=== PATIENT | female | born 1935 | race Caucasian/White ===

== ENCOUNTER → 2016-06-17 | Outpatient (CLI) | payer OTHER, BC ==
--- NOTE | 2016-06-17 22:58 | DI ---
THORACOLUMBAR SPINE SERIES, 06/17/2016 12:11 PM: Clinical History: Thoracolumbar back pain. Previous Exam: None at this facility. Upright AP and lateral views of the lower thoracic spine from T6 through the entire lumbar spine are submitted. There is anterior wedging of T8 consistent with a chronic osteoporotic compression fractur e. The remaining thoracic and lumbar vertebral bodies are of normal height. Chronic disc space narrow ing is present from T7-8 through L5-S1. There is a grade 1 spondylolisthesis at L3-4. Degenerative ar thritic changes are present in the thoracic apophyseal joints from T6-7 through T11-12 and in the lum bar spine from L3-4 through L5-S1. Mild levoscoliosis is present in the upper lumbar spine. There are moderate degenerative changes of the sacroiliac joints. This patient has a dual-chamber pacemaker an d the atrial lead may actually be in the right ventricle. Readin. Chronic osteoporotic mild compression fracture is present at T8 and this has a chronic appearance . 2. Diffuse disc space narrowing is visualized from T7-8 through L5-S1 and there is a grade 1 spondyl olisthesis at L3-4. 3. Arthritic changes are present in both sacroiliac joints. 4. The patient has a dual-chamber pacemaker. The right ventricular lead is in the appropriate positi on. The atrial lead may actually be in the right ventricle. If verification is required, then a two-v iew chest x-ray would be recommended.
== END ==
LOC: LAB 12:46
PROVIDERS: ATTEND Internal Medicine
DX: M54.5 Low back pain (principal); M54.6 Pain in thoracic spine; M43.16 Spondylolisthesis, lumbar region; M48.05 Spinal stenosis, thoracolumbar region; M48.54XA Collapsed vertebra, not elsewhere classified, thoracic region, initial encounter for fracture
CPT/HCPCS: 72080

== ENCOUNTER → 2016-07-17 | Outpatient (CLI) | payer OTHER, BC ==
--- NOTE | 2016-07-17 13:01 | DI ---
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 Previous Exam: June 17, 2016 Findings: Lateral flexion and extension views of the lumbar spine are obtained, and demonstrate mild grade 1 an terolisthesis of L3 on L4. Peripheral vascular calcifications are noted. A nonobstructive bowel gas pattern is seen. Postsurgical clips are seen consistent with prior cholecy stectomy. There is mild loss of intervertebral disc height at multiple levels with some vacuum disc p henomenon. Impression: Degenerative disc disease without evidence of instability on flexion or extension.
--- NOTE | 2016-07-17 13:01 | DI ---
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 Previous Exam: June 17, 2016 Findings: 2 lateral views of the thoracic spine are obtained, and demonstrate some mild anterior wedging withou t evidence of compression fracture. There is loss of intervertebral disc height throughout most consi stent with degenerative disc disease. There is a pacemaker which is stable. The lungs appear clear. The cervical spine demonstrates grade 1 anterolisthesis of C3 on C4 and C4 on C5. The prevertebral soft tissues are unremarkable. Impression: Mild diffuse osteopenia and diffuse degenerative disc disease otherwise unremarkable.
--- NOTE | 2016-07-17 13:01 | DI ---
XR FINGERS MIN 2VW,07/17/2016 11:50 AM: Clinical History: Injury of the right index finger. Previous Exam: None at this facility. Findings: 2 views of the right index finger are obtained, and demonstrate extensive degenerative changes of the right distal interphalangeal joint with bony erosion and osteophyte formation. There is also a fragm ent seen on the anterior view involving the lateral surface of the right second distal interphalangea l joint. There are some soft tissue swelling. There are also advanced degenerative changes involving the right first carpometacarpal joint consiste nt with osteoarthritis. There is subchondral cyst formation in the proximal right first metacarpal. Impression: 1. Avulsed fragment within the soft tissues of the right second distal interphalangeal joint with ero sive osteoarthritis of the same joint. It is difficult to tell whether the. There is an acute injury or secondary to the rest of arthritis. Correlate clinically.
== END ==
LOC: MOB RAD 11:55
PROVIDERS: ATTEND Physician Assistant
DX: M47.26 Other spondylosis with radiculopathy, lumbar region (principal); M47.814 Spondylosis without myelopathy or radiculopathy, thoracic region; S69.91XA Unspecified injury of right wrist, hand and finger(s), initial encounter; M19.041 Primary osteoarthritis, right hand
CPT/HCPCS: 72070; 72110; 73140

== ENCOUNTER → 2016-08-14 | Outpatient (CLI) | payer OTHER, BC ==
[2016-08-14 09:34] LABS: BASOPHILS # (AUTO) 0.09 10*3/UL; EOSINOPHILS # (AUTO) 0.08 10*3/UL; EOSINOPHILS % (AUTO) 1.8 % (0-8); HEMATOCRIT 31.3 % (37.0-47.0); HEMOGLOBIN 9.4 g/dL (12.0-16.0); LYMPHOCYTES # (AUTO) 1.65 10*3/uL; MEAN CORPUSCULAR HEMOGLOBIN 27.3 PG (27-31); MEAN PLATELET VOLUME 9.5 FL (7.4-12.2); MONOCYTES # (AUTO) 0.49 10*3/UL (0.3-0.8); MONOCYTES % (AUTO) 10.9 % (5-15); NEUTROPHILS # (AUTO) 2.19 10*3/UL; NEUTROPHILS % (AUTO) 48.5 % (50-80); RED BLOOD COUNT 3.44 10^6/uL (4.20-5.40)
[2016-08-14 09:38] LABS: PLATELET MORPHOLOGY COMMENT NORMAL MORPHOLOGY (NORM); RBC MORPHOLOGY COMMENT NORMAL MORPHOLOGY (NORM); WBC MORPHOLOGY COMMENT NORMAL MORPHOLOGY (NORM)
[2016-08-14 09:48] LABS: BLOOD UREA NITROGEN 28 mg/dL (7-22); CALCIUM 9.7 mg/dL (8.7-10.7); CHOL/HDL RATIO 3.71 RATIO (0-4.0); HDL CHOLESTEROL 49 mg/dL (40-150); SERUM ALBUMIN 4.2 g/dL (3.5-4.8); SERUM CHOLESTEROL 182 mg/dL (120-200)
[2016-08-14 09:55] LABS: CREATININE, URINE 23.9 MG/DL (15-500)
[2016-08-14 10:09] LABS: HEMOGLOBIN A1C 5.75 % (4.2-6.0)
== END ==
LOC: LAB 09:12
PROVIDERS: ATTEND Internal Medicine
DX: E11.9 Type 2 diabetes mellitus without complications (principal); E78.5 Hyperlipidemia, unspecified; D64.9 Anemia, unspecified; I10 Essential (primary) hypertension
CPT/HCPCS: 36415; 80053; 80061; 82043; 82550; 83036; 85025

== ENCOUNTER → 2016-09-17 | Outpatient (CLI) | payer OTHER, BC ==
[2016-09-17 12:24] LABS: BASOPHILS # (AUTO) 0.09 10*3/UL; BASOPHILS % (AUTO) 1.9 % (0-1); EOSINOPHILS # (AUTO) 0.13 10*3/UL; EOSINOPHILS % (AUTO) 2.7 % (0-8); HEMATOCRIT 34.4 % (37.0-47.0); HEMOGLOBIN 10.7 g/dL (12.0-16.0); LYMPHOCYTES # (AUTO) 2.01 10*3/uL; MEAN CORPUSCULAR HEMOGLOBIN 28.5 PG (27-31); MEAN CORPUSCULAR HGB CONC 31.1 g/dL (33-37); MEAN CORPUSCULAR VOLUME 91.7 FL (81-99); MEAN PLATELET VOLUME 9.5 FL (7.4-12.2); MONOCYTES # (AUTO) 0.48 10*3/UL (0.3-0.8); MONOCYTES % (AUTO) 9.9 % (5-15); NEUTROPHILS # (AUTO) 2.11 10*3/UL; NEUTROPHILS % (AUTO) 43.7 % (50-80); RED BLOOD COUNT 3.75 10^6/uL (4.20-5.40)
[2016-09-17 12:27] LABS: PLATELET MORPHOLOGY COMMENT NORMAL MORPHOLOGY (NORM); RBC MORPHOLOGY COMMENT NORMAL MORPHOLOGY (NORM); WBC MORPHOLOGY COMMENT NORMAL MORPHOLOGY (NORM)
== END ==
LOC: LAB 11:59
PROVIDERS: ATTEND Internal Medicine
DX: M81.0 Age-related osteoporosis without current pathological fracture (principal); D64.9 Anemia, unspecified; I48.91 Unspecified atrial fibrillation; I10 Essential (primary) hypertension; G47.33 Obstructive sleep apnea (adult) (pediatric)
CPT/HCPCS: 82306; 82607; 83010; 83540; 83550; 83921; 85025; 99214; G0463

== ENCOUNTER → 2016-12-16 | Outpatient (CLI) | payer OTHER, BC ==
[2016-12-16 14:09] LABS: BASOPHILS # (AUTO) 0.07 10*3/UL; BASOPHILS % (AUTO) 1.7 % (0-1); EOSINOPHILS # (AUTO) 0.15 10*3/UL; EOSINOPHILS % (AUTO) 3.5 % (0-8); HEMATOCRIT 30.2 % (37.0-47.0); HEMOGLOBIN 9.5 g/dL (12.0-16.0); LYMPHOCYTES # (AUTO) 1.65 10*3/uL; MEAN CORPUSCULAR HEMOGLOBIN 30.6 PG (27-31); MEAN CORPUSCULAR HGB CONC 31.5 g/dL (33-37); MEAN CORPUSCULAR VOLUME 97.4 FL (81-99); MEAN PLATELET VOLUME 8.7 FL (7.4-12.2); MONOCYTES # (AUTO) 0.45 10*3/UL (0.3-0.8); MONOCYTES % (AUTO) 10.6 % (5-15)
[2016-12-16 14:13] LABS: PLATELET MORPHOLOGY COMMENT NORMAL MORPHOLOGY (NORM); RBC MORPHOLOGY COMMENT NORMAL MORPHOLOGY (NORM); WBC MORPHOLOGY COMMENT NORMAL MORPHOLOGY (NORM)
[2016-12-16 14:24] LABS: BLOOD UREA NITROGEN 23 mg/dL (7-22); BUN/CREATININE RATIO 16.42 (6-20); CALCIUM 9.5 mg/dL (8.7-10.7); SERUM ALBUMIN 4.2 g/dL (3.5-4.8)
== END ==
LOC: LAB 13:56
PROVIDERS: ATTEND Internal Medicine
DX: D50.0 Iron deficiency anemia secondary to blood loss (chronic) (principal); I48.91 Unspecified atrial fibrillation; M48.06 Spinal stenosis, lumbar region; I10 Essential (primary) hypertension; D64.9 Anemia, unspecified; G47.33 Obstructive sleep apnea (adult) (pediatric); M81.0 Age-related osteoporosis without current pathological fracture; E78.5 Hyperlipidemia, unspecified
CPT/HCPCS: 36415; 80053; 82728; 85025; 99214; G0463

== ENCOUNTER → 2016-12-26 | Outpatient (CLI) | payer OTHER, BC | LOC: MMPC 10:00 | PROVIDERS: ATTEND Podiatrist Foot & Ankle Surgery | DX: M79.674 Pain in right toe(s) (principal); M79.675 Pain in left toe(s); L60.3 Nail dystrophy; L60.0 Ingrowing nail; B35.1 Tinea unguium; G62.9 Polyneuropathy, unspecified; E11.9 Type 2 diabetes mellitus without complications; I73.9 Peripheral vascular disease, unspecified | CPT/HCPCS: 11721 ×2; G0463 ==

== ENCOUNTER → 2017-01-09 | Outpatient (CLI) | payer OTHER, BC | LOC: MMPC 10:00 | PROVIDERS: ATTEND Neurological Surgery | DX: M47.817 Spondylosis without myelopathy or radiculopathy, lumbosacral region (principal); M48.06 Spinal stenosis, lumbar region; M47.813 Spondylosis without myelopathy or radiculopathy, cervicothoracic region | CPT/HCPCS: 99213; G0463 ==